=== PATIENT | female | born 2000 | race Two or more races ===

== ENCOUNTER 2020-11-14 17:24 | Outpatient (CLI) | payer MEDICAID ==
[~2020-11-14] VITALS: Ht 165.1 cm; Wt 97.0 kg
[2020-11-14 17:33] VITALS: BP 128/71
[2020-11-14 18:21] LABS: BASOPHILS % (AUTO) 0 % (0-1); EOSINOPHILS % (AUTO) 3 % (1-7); LYMPHOCYTES % (AUTO) 26 % (22-44); MEAN CORPUSCULAR HEMOGLOBIN 29.9 pg (27.0-34.8); MEAN CORPUSCULAR HGB CONC 33.9 g/dL (32.4-35.8); MEAN PLATELET VOLUME 7.6 fL (7.4-10.4); MONOCYTES % (AUTO) 8 % (2-9); NEUTROPHILS % (AUTO) 64 % (42-75); PLATELET COUNT 339 x10^3/uL (130-400); RED BLOOD COUNT 3.76 x10^6/uL (3.82-5.3); RED CELL DISTRIBUTION WIDTH 12.9 % (9.6-15.2)
[2020-11-14 18:22] LABS: MD NO
[2020-11-14 18:22] LABS: MICROSCOPIC INDICATED
[2020-11-14 18:30] LABS: AMPHETAMINE SCREEN, URINE Negative (Negative); BARBITURATE SCREEN, URINE Negative (Negative); BENZODIAZEPINE SCREEN, URINE Negative (Negative); CANNABINOID SCREEN, URINE Positive (Negative); COCAINE SCREEN, URINE Negative (Negative); METHADONE SCREEN, URINE Negative (Negative); OPIATE SCREEN, URINE Negative (Negative)
== END 2020-11-14 19:32 | disposition home or self-care (01) ==
LOC: LDOP 17:24
PROVIDERS: ATTEND Obstetrics & Gynecology Female Pelvic Medicine and Reconstructive Surgery
DX: O26.892 Other specified pregnancy related conditions, second trimester (principal); O42.912 Preterm premature rupture of membranes, unspecified as to length of time between rupture and onset of labor, second trimester; R10.9 Unspecified abdominal pain; Z3A.20 20 weeks gestation of pregnancy
CPT/HCPCS: 36415; 76805; 80307; 81001; 84112; 85025; 87086; 99211; G0463

== ENCOUNTER 2020-12-14 08:22 | Outpatient (CLI) | payer MEDICAID ==
[~2020-12-14] VITALS: Ht 165.1 cm; Wt 106.8 kg
[2020-12-14 08:30] VITALS: BP 108/64
[2020-12-14 09:18] LABS: MICROSCOPIC INDICATED
[2020-12-14 09:23] LABS: AMPHETAMINE SCREEN, URINE Negative (Negative); BARBITURATE SCREEN, URINE Negative (Negative); BENZODIAZEPINE SCREEN, URINE Negative (Negative); CANNABINOID SCREEN, URINE Positive (Negative); COCAINE SCREEN, URINE Negative (Negative); METHADONE SCREEN, URINE Negative (Negative); OPIATE SCREEN, URINE Negative (Negative)
== END 2020-12-14 09:41 | disposition home or self-care (01) ==
LOC: LDOP 08:22
PROVIDERS: ATTEND Obstetrics & Gynecology
DX: O26.892 Other specified pregnancy related conditions, second trimester (principal); Z3A.24 24 weeks gestation of pregnancy
CPT/HCPCS: 80307; 81001; 84112; 87086; 99211; G0463

== ENCOUNTER 2020-12-19 19:35 | Outpatient (CLI) | payer MEDICAID ==
[2020-12-19 21:44] LABS: MICROSCOPIC INDICATED
[2020-12-19 23:51] LABS: MICROSCOPIC INDICATED
== END 2020-12-20 00:07 | disposition home or self-care (01) ==
LOC: LDOP 19:35
PROVIDERS: ATTEND Obstetrics & Gynecology
DX: O46.92 Antepartum hemorrhage, unspecified, second trimester (principal); Z3A.35 35 weeks gestation of pregnancy
CPT/HCPCS: 59025; 81001; 87086

== ENCOUNTER 2021-01-21 22:44 | Outpatient (CLI) | payer MEDICAID ==
[~2021-01-21] VITALS: Ht 162.6 cm; Wt 110.0 kg
[2021-01-21] MEDS ORDERED: TERBUTALINE 1 MG/ML, 1ML ONE (23:45)
[2021-01-22] MEDS ORDERED: LACTATED RINGERS 1,000 ML IVBOLUS ONE
[2021-01-22] MEDS ORDERED: TERBUTALINE 1 MG/ML, 1ML SQ ONE
[2021-01-22 01:00] LABS: MICROSCOPIC INDICATED
== END 2021-01-22 01:48 | disposition home or self-care (01) ==
LOC: LDOP 22:44
PROVIDERS: ATTEND Obstetrics & Gynecology
DX: O26.893 Other specified pregnancy related conditions, third trimester (principal); R10.9 Unspecified abdominal pain; Z3A.30 30 weeks gestation of pregnancy
CPT/HCPCS: 59025; 81001; 87086; 96360; 96361; 96372; J3105; J7120

== ENCOUNTER 2021-02-02 21:39 | Outpatient (CLI) | payer MEDICAID ==
[~2021-02-02] VITALS: Ht 167.6 cm; Wt 127.3 kg
== END 2021-02-02 22:57 | disposition home or self-care (01) ==
LOC: LDOP 21:39
PROVIDERS: ATTEND Obstetrics & Gynecology
DX: O42.913 Preterm premature rupture of membranes, unspecified as to length of time between rupture and onset of labor, third trimester (principal); Z3A.32 32 weeks gestation of pregnancy
CPT/HCPCS: 59025; 84112

== ENCOUNTER 2021-02-22 16:58 | Emergency (ER) | payer MEDICAID ==
[~2021-02-22] VITALS: Ht 165.1 cm; Wt 104.0 kg
[2021-02-22 17:30] VITALS: BP 125/89
--- NOTE | 2021-02-22 18:45 | NUR ---
N/A in Lobby x 2
--- NOTE | 2021-02-22 19:19 | NUR ---
PT WENT TO L AND D TO BE EVALUATED
== END 2021-02-22 19:21 | disposition home or self-care (01) ==
LOC: ED 17:10
DX: R05 Cough (principal); R10.9 Unspecified abdominal pain
CPT/HCPCS: 93005; 99283

== ENCOUNTER 2021-02-22 17:55 | Outpatient (CLI) | payer MEDICAID ==
[~2021-02-22] VITALS: Ht 167.6 cm; Wt 104.0 kg
== END 2021-02-22 19:31 | disposition home or self-care (01) ==
LOC: LDOP 17:55
PROVIDERS: ATTEND Obstetrics & Gynecology
DX: O98.513 Other viral diseases complicating pregnancy, third trimester (principal); Z3A.36 36 weeks gestation of pregnancy
CPT/HCPCS: 59025; 87635